=== PATIENT | female | born 1990 | race Native Hawaiian/Other Pacific Islander ===

== ENCOUNTER 2016-08-08 15:37 | Emergency (ER) | payer OTHER ==
[2016-08-08 15:44] VITALS: O2SAT 100
[2016-08-08] MEDS ORDERED: Sodium Chloride 0.9% 1,000 ML IV ONE (15:54)
--- NOTE | 2016-08-08 16:00 | C.PDOC ---
History Of Present Illness <Nasir Chanel - Last Filed: 08/08/16 18:55> <Amauri Padron - Last Filed: 08/08/16 20:58> 26-year-old female, presents to the emergency department with complaints of right flank pain that started three days ago. Patient seen by PMD, and had a negative XR and UA, but pain persisted, resulting in her coming to the ED for evaluation. Denies fevers, nausea/vomiting, or any other associated symptoms. LNMP: 07/24. No other complaints at this time. (Nasir Chanel) History Per: Patient History/Exam Limitations: no limitations Onset/Duration Of Symptoms: Days (3), Persistent Current Symptoms Are (Timing): Still Present <Nasir Chanel - Last Filed: 08/08/16 18:55> <Amauri Padron - Last Filed: 08/08/16 20:58> Time Seen by Provider: 08/08/16 15:47 Chief Complaint (Nursing): Back Pain Past Medical History Reviewed: Historical Data, Nursing Documentation, Vital Signs Family History: States: Unknown Family Hx - Social History Hx Alcohol Use: No Hx Substance Use: No - Immunization History Hx Tetanus Toxoid Vaccination: No Hx Influenza Vaccination: No Hx Pneumococcal Vaccination: No <Nasir Chanel - Last Filed: 08/08/16 18:55> Review Of Systems Except As Marked, All Systems Reviewed And Found Negative. Constitutional: Negative for: Fever, Chills Cardiovascular: Negative for: Chest Pain Respiratory: Negative for: Shortness of Breath Gastrointestinal: Negative for: Nausea, Vomiting Genitourinary: Negative for: Dysuria, Frequency, Vaginal Discharge, Vaginal Bleeding Musculoskeletal: Positive for: Back Pain <Nasir Chanel - Last Filed: 08/08/16 18:55> Physical Exam - Physical Exam Appears: Non-toxic, No Acute Distress Skin: Normal Color, Warm, Dry, No Rash Head: Atraumatic, Normacephalic Nose: Normal Oral Mucosa: Moist Neck: Normal ROM Cardiovascular: Rhythm Regular Respiratory: Normal Breath Sounds, No Accessory Muscle Use Gastrointestinal/Abdominal: Soft, No Tenderness Back: CVA Tenderness (right) Extremity: Normal ROM Neurological/Psych: Oriented x3, Normal Speech <Nasir Chanel - Last Filed: 08/08/16 18:55> ED Course And Treatment - Laboratory Results Result Diagrams: 08/08/16 16:30 08/08/16 16:30 O2 Sat by Pulse Oximetry: 100 <Nasir Chanel - Last Filed: 08/08/16 18:55> - Laboratory Results Result Diagrams: 08/08/16 16:30 08/08/16 16:30 <PadronAmauri R - Last Filed: 08/08/16 20:58> Medical Decision Making <Nasir Chanel - Last Filed: 08/08/16 18:55> <VitoAmauri R - Last Filed: 08/08/16 20:58> Medical Decision Making: r/o renal colic vs uti/pyelo vs msk pain Plan: * CMP, Lipase * CBC, PTT, PT * IVF * Urinalysis/HCG * Reassess and Disposition 700: pt comfortable. pending ct, reassessment and final dispo. 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 (Nasir Chanel) Disposition <CharliegennyNasir munson - Last Filed: 08/08/16 18:55> Discussed With .: Petr Garcia Doctor Will See Patient In The: Office Counseled Patient/Family Regarding: Diagnosis - Disposition Disposition Time: 20:54 - POA Present On Arrival: None <Amauri Padron - Last Filed: 08/08/16 20:58> - Disposition Referrals: Petr Garcia MD [Staff Provider] - Disposition: HOME/ ROUTINE Condition: STABLE Prescriptions: Cyclobenzaprine [Cyclobenzaprine HCl] 10 mg PO TID #20 tab Naproxen [Naprosyn Tab] 375 mg PO TIDPC #20 tab Instructions: Flank Pain (ED) - Clinical Impression Clinical Impression: Flank pain <Saba Chanelil - Last Filed: 08/08/16 18:55> <Amauri Padron R - Last Filed: 08/08/16 20:58> - Scribe Statement Darya Noonan All medical record entries made by the Scribe were at my direction and personally dictated by me. I have reviewed the chart and agree that the record accurately reflects my personal performance of the history, physical exam, medical decision making, and the department course for this patient. I have also personally directed, reviewed, and agree with the discharge instructions and disposition. (Nasir Chanel)
[2016-08-08 16:46] LABS: BASO % 0.4 % (0.0-2.0); EOS # 0.1 K/uL (0.0-0.7); EOS % 1.8 % (0.0-4.0); HEMATOCRIT 38.4 % (34.0-47.0); LYMPH # 2.6 K/uL (1.0-4.3); LYMPH % 34.6 % (20.0-40.0); MEAN CELL VOLUME 87.5 fL (81.0-99.0); MEAN CORPUSCULAR HEMOGLOBIN 28.5 pg (27.0-31.0); MEAN CORPUSCULAR HGB CONC 32.6 g/dL (33.0-37.0); MEAN PLATELET VOLUME 8.2 fL (7.2-11.7); MONO # 0.9 K/uL (0.0-0.8); MONO % 11.6 % (0.0-10.0); NRBC % 0.1 % (0.0-2.0); WHITE BLOOD COUNT 7.5 K/uL (4.8-10.8)
[2016-08-08 16:56] LABS: INR 1.2
[2016-08-08 17:35] LABS: CHLORIDE 100 mmol/L (98-107)
[2016-08-08 17:36] LABS: POTASSIUM 3.9 mmol/L (3.6-5.2); SODIUM 137 mmol/L (132-148)
[2016-08-08 17:38] LABS: BILIRUBIN,TOTAL 0.6 mg/dL (0.2-1.3); CARBON DIOXIDE 25 mmol/L (22-30); GFR AFRICAN-AMERICAN > 60
[2016-08-08 17:39] LABS: ALB/GLOB RATIO 1.1 (1.0-2.1); ALKALINE PHOSPHATASE 56 U/L (38-126); ALT/SGPT 15 U/L (9-52); AST/SGOT 26 U/L (14-36); BLOOD UREA NITROGEN 10 mg/dL (7-17); CALCIUM 8.5 mg/dl (8.6-10.4); GLUCOSE,RANDOM 74 mg/dL (65-105); TOTAL PROTEIN 7.7 g/dL (6.3-8.3)
[2016-08-08 20:35] LABS: RBC URINE 5 /hpf (0-3); URINE BACTERIA OCC (<OCC); URINE BILIRUBIN NEGATIVE (NEGATIVE); URINE BLOOD NEGATIVE (NEGATIVE); URINE COLOR Yellow (YELLOW); URINE GLUCOSE (UA) NORMAL (Normal); URINE KETONE NEGATIVE (NEGATIVE); URINE LEUKOCYTE ESTERASE NEG Leu/uL (Negative); URINE PROTEIN NEGATIVE (NEGATIVE); URINE UROBILINOGEN NORMAL mg/dL (0.2-1.0); WBC URINE 3 /hpf (0-5)
[2016-08-08] MEDS ORDERED: Naproxen 550 mg Tab PO STA (20:57)
[2016-08-08 21:12] VITALS: BP 101/66; PULSE 59; RESP 18; TEMP 98.4
--- NOTE | 2016-08-09 09:49 | CT ---
PROCEDURE: CT Abdomen and Pelvis without intravenous contrast HISTORY: right flank pain COMPARISON: None. TECHNIQUE: Axial and reformatted coronal and sagittal CT images of the abdomen and pelvis were obtained without IV or oral contrast administration.. Contrast Dose: 0 Radiation dose: Total exam DLP = 315.76 mGy-cm. This CT exam was performed using one or more of the following dose reduction techniques: Automated exposure control, adjustment of the mA and/or kV according to patient size, and/or use of iterative reconstruction technique. FINDINGS: LOWER THORAX: Unremarkable. LIVER: Unremarkable. No gross lesion or ductal dilatation. GALLBLADDER AND BILE DUCTS: Unremarkable. PANCREAS: Unremarkable. No gross lesion or ductal dilatation. SPLEEN: Unremarkable. ADRENALS: Unremarkable. No mass. KIDNEYS AND URETERS: Unremarkable. No hydronephrosis. No solid mass. VASCULATURE: Unremarkable. No aortic aneurysm. BOWEL: Unremarkable. No obstruction. No gross mural thickening. APPENDIX: No evidence of appendicitis. PERITONEUM: Unremarkable. No free fluid. No free air. LYMPH NODES: Unremarkable. No enlarged lymph nodes. BLADDER: Mild urinary bladder wall thickening. REPRODUCTIVE: Bilateral enlargement of the adnexa right more than left. BONES: No acute fracture. OTHER FINDINGS: None. IMPRESSION: No evidence of nephrolithiasis or hydronephrosis. Bilateral mild enlargement of the adnexa. If clinically warranted further assessment by ultrasound may be obtained. Mild urinary bladder wall thickening. Preliminary report was submitted by [facility].
== END 2016-08-08 21:12 | disposition home or self-care (01) ==
LOC: C.ER 15:37
DX: R10.9 Unspecified abdominal pain (principal)
CPT/HCPCS: 74176; 80053; 81001; 83690; 84703; 85025; 85610; 85730; 96361; 96374; 99284; J1885; J7040